=== PATIENT | male | born 1945 | race Caucasian/White ===

== ENCOUNTER 2019-07-11 06:15 | Observation (INO) | payer MEDICARE ==
[2019-07-09 08:45] LABS: BASOPHILS % (AUTO) 0.6 % (0.0-5.0); EOSINOPHILS % (AUTO) 4.8 % (0.0-8.0); HEMATOCRIT 39.9 % (42-54); LYMPHOCYTES % (AUTO) 12.6 % (21.0-51.0); MEAN CORPUSCULAR HEMOGLOBIN 22.3 pg (27.0-33.0); MEAN CORPUSCULAR HGB CONC 29.6 g/dL (32.0-36.0); MEAN CORPUSCULAR VOLUME 75.4 fL (79-99); MONOCYTES % (AUTO) 15.6 % (3.0-13.0); NEUTROPHILS % (AUTO) 65.8 % (40.0-77.0); PLATELET COUNT (AUTO) 318 K/uL (130-400); RED BLOOD CELL COUNT(AUTO) 5.29 MIL/uL (4.50-6.20); WHITE BLOOD COUNT (AUTO) 7.7 K/uL (4.8-10.8)
[2019-07-09 08:52] VITALS: BP 152/76
[2019-07-09 08:53] LABS: CREATININE 1.2 mg/dL (0.5-1.5)
[2019-07-09 09:05] LABS: INR 1.04 (0.85-1.15); PARTIAL THROMBOPLASTIN TIME 30.8 SEC (26.3-35.5); PROTHROMBIN TIME 10.9 SEC (9.6-11.6)
--- NOTE | 2019-07-09 09:42 | NUR ---
VOICEMAIL LEFT WITH MELODIE TO INFORM HIM OF PROCEDURE. Addendum: 07/09/19 at 0970 by AMERICA SALTER RN RN [facility]
[~2019-07-11] VITALS: Ht 189.2 cm; Wt 124.4 kg
[2019-07-11] VITALS (10 sets, daily range): BP systolic 117–150; BP diastolic 63–78
[~2019-07-11 06:15] MED LIST: ALLO300T2 PO; AMLO10TA7 PO; CEFAZOLIN SODIUM 1 GM VIAL IVP SCH; EPLE25TA10 PO; FISH1CAP27 PO; INSU100I24 SQ; LEVO200T10 PO; LOSA100T58 PO; OMEP20CA12 PO; RIVA20TA PO; SODIUM CHLORIDE 0.9% 1000ML 1,000 ML IV SCH; SOTA80TA PO
--- NOTE | 2019-07-11 06:33 | NUR ---
PATIENT ARRIVED PATIENT ARRIVED TO DAY PATIENT ACCOMPANIED BY SPOUSE, MICHELLE. PATIENT AAOX3, RESPIRATIONS UNLABORED, VITAL SIGNS STABLE. PROCEDURE VERIFIED WITH PATIENT AND HOSPITAL ROUTINE EXPLAINED. PATIENT VERBALIZED UNDERSTANDING. PATIENT HAS LARGE ABRASION (DRY SCAB) TO THE BACK OF HIS LEFT FOREARM. PATIENT STATES THAT HE FELL DOWN A WEEK AGO AND THAT DR BOURNE IS AWARE OF THE ABRASION/FALL.
[2019-07-11] MEDS ORDERED: BUPIVACAINE/PF 0.25% 30ML VIAL IJ ONE (09:54)
[2019-07-11] MEDS ORDERED: CEFAZOLIN SODIUM 1 GM VIAL ONE (09:55)
[2019-07-11] MEDS ORDERED: LIDOCAINE HCL 2% 20ML ONE (09:55)
[2019-07-11] MEDS ORDERED: MIDAZOLAM HCL 1 MG/ML 2ML VIAL ONE ×2 (09:55→10:54)
[2019-07-11] MEDS ORDERED: IODIXANOL 320 MG/ML 100 ML VIAL ONE (09:55)
[2019-07-11] MEDS ORDERED: MEPERIDINE-PF 25 MG/ML SYG ONE ×2 (09:56→10:54)
[2019-07-11] MEDS ORDERED: LIDOCAINE HCL 1% MDV 50ML VIAL ONE (09:57)
--- NOTE | 2019-07-11 10:14 | NUR ---
PATIENT TRANSFERRED TO MEDICAL PRACTICE ASSISTANT VIA BED BY CANDY FELDER. DR BOURNE SPOKE WITH PATIENT REGARDING PROCEDURE, PATIENT VERBALIZED UNDERSTANDING. PATIENT'S INSTRUCTED TO WAIT IN ROOM IN ORDER TO SPEAK WITH DR BOURNE AFTER PROCEDURE IS COMPLETE.
--- NOTE | 2019-07-11 12:00 | NUR ---
POST PROCEDURE RECEIVED PT FROM ASLEEP BUT AROUSEABLE, A&OX3, CALM COOPERATIVE AND DOES NOT APPEAR TO BE IN ANY DISTRESS NOR ANY NEURO DEFICITS PRESENT. PT DENIES PAIN, SOB, NAUSEA. LEFT SHOULDER DRESSING DRY, INTACT AND SECURED WITH ARM SLING, PT ON BEDREST UNTIL 1529. CALL LIGHT WITHIN REACH, FAMILY AT BEDSIDE.
[2019-07-11] MEDS ORDERED: TRAMADOL HCL 50 MG TABLET PO PRN (15:30)
--- NOTE | 2019-07-11 16:00 | NUR ---
BEDREST COMPLETE PT AMBULATING TO BATHROOM TO HALLWAY AND BACK TO BED, GAIT STEADY AND STRONG WITH STAND BY ASSIST. CALL LIGHT WITHIN REACH, FAMILY AT BEDSIDE.
--- NOTE | 2019-07-11 16:03 | NUR ---
0816 patient signed FRANCIS Letter, I faxed letter to [phone] and placed in chart under consent tab
[2019-07-11] MEDS: SOTALOL HCL 80 MG TABLET PO SCH (21:23)
[2019-07-12 03:00] VITALS: BP 144/78
[2019-07-12 04:44] LABS: HEMATOCRIT 37.3 % (42-54); MEAN CORPUSCULAR HEMOGLOBIN 22.3 pg (27.0-33.0); MEAN CORPUSCULAR HGB CONC 30.3 g/dL (32.0-36.0); MEAN CORPUSCULAR VOLUME 73.7 fL (79-99); PLATELET COUNT (AUTO) 296 K/uL (130-400); RED BLOOD CELL COUNT(AUTO) 5.06 MIL/uL (4.50-6.20); RED CELL DISTRIBUTION WIDTH 18.9 % (11.0-15.5); WHITE BLOOD COUNT (AUTO) 8.6 K/uL (4.8-10.8)
[2019-07-12 05:03] LABS: CREATININE 1.1 mg/dL (0.5-1.5); POTASSIUM 4.1 mmol/L (3.5-5.1)
[2019-07-12] MEDS ORDERED: LEVOTHYROXINE 100 MCG TABLET PO SCH (06:30)
[2019-07-12 07:00] VITALS: BP 121/64
[2019-07-12] MEDS ORDERED: INSULIN DEGLUDEC 30 UNIT SQ SCH (09:00)
[2019-07-12] MEDS ORDERED: LOSARTAN 100 MG TABLET PO SCH (09:00)
[2019-07-12] MEDS ORDERED: ALLOPURINOL 300 MG TABLET PO SCH (09:00)
[2019-07-12] MEDS ORDERED: PANTOPRAZOLE SODIUM 40 MG TABLET.DR PO SCH (09:00)
[2019-07-12] MEDS ORDERED: ***HM***(Eplerenone 25 MG) PO SCH (09:00)
[2019-07-12] MEDS ORDERED: AMLODIPINE BESYLATE 5 MG TAB PO SCH (09:00)
[2019-07-12] MEDS: SOTALOL HCL 80 MG TABLET PO SCH (09:00)
== END 2019-07-12 11:48 | disposition home or self-care (01) ==
LOC: DAH 06:15 → DAHIP 06:16 → 2AH 12:07
PROVIDERS: ADMIT Internal Medicine; ATTEND Internal Medicine
DX: I49.5 Sick sinus syndrome (principal); I48.0 Paroxysmal atrial fibrillation; I25.10 Atherosclerotic heart disease of native coronary artery without angina pectoris; R00.1 Bradycardia, unspecified; I45.89 Other specified conduction disorders; E03.9 Hypothyroidism, unspecified; Z85.819 Personal history of malignant neoplasm of unspecified site of lip, oral cavity, and pharynx; I10 Essential (primary) hypertension; I44.0 Atrioventricular block, first degree; Z87.891 Personal history of nicotine dependence; Z95.0 Presence of cardiac pacemaker; Z79.01 Long term (current) use of anticoagulants; Z79.899 Other long term (current) drug therapy
CPT/HCPCS: 33208; 36415 ×2; 71045; 80048 ×2; 82948 ×2; 85025; 85027; 85610; 85730; A4215; A4216; A4221; A4222; A4223 ×3; A4606; A4663; C1785; C1898 ×2; G0378 ×24; J0690; J2175 ×2; J2250 ×2; J3490 ×2; 99156; 99157; Q9967

== ENCOUNTER 2019-09-12 05:50 | Day surgery (SDC) | payer MEDICARE ==
[~2019-09-12] VITALS: Ht 193 cm; Wt 121.5 kg
[2019-09-12] VITALS (12 sets, daily range): BP systolic 115–158; BP diastolic 66–94
[~2019-09-12 05:50] MED LIST changes: -CEFAZOLIN SODIUM 1 GM VIAL IVP SCH; -SODIUM CHLORIDE 0.9% 1000ML 1,000 ML IV SCH
[2019-09-12 06:58] LABS: BASOPHILS % (AUTO) 0.7 % (0.0-5.0); EOSINOPHILS % (AUTO) 6.2 % (0.0-8.0); HEMATOCRIT 40.5 % (42-54); LYMPHOCYTES % (AUTO) 13.1 % (21.0-51.0); MEAN CORPUSCULAR HEMOGLOBIN 22.8 pg (27.0-33.0); MEAN CORPUSCULAR HGB CONC 30.1 g/dL (32.0-36.0); MEAN CORPUSCULAR VOLUME 75.8 fL (79-99); MONOCYTES % (AUTO) 15.3 % (3.0-13.0); PLATELET COUNT (AUTO) 310 K/uL (130-400); RED BLOOD CELL COUNT(AUTO) 5.34 MIL/uL (4.50-6.20); RED CELL DISTRIBUTION WIDTH 19.7 % (11.0-15.5); WHITE BLOOD COUNT (AUTO) 8.6 K/uL (4.8-10.8)
[2019-09-12] MEDS ORDERED: SODIUM CHLORIDE 0.9% 1000ML 1,000 ML IV ONE ×2 (07:13→07:19)
[2019-09-12 07:18] LABS: CREATININE 1.3 mg/dL (0.5-1.5); POTASSIUM 4.5 mmol/L (3.5-5.1)
[2019-09-12] MEDS ORDERED: PILOC5 PO (07:46)
--- NOTE | 2019-09-12 08:25 | NUR ---
MD DR BOURNE ARRIVED AND EVAL PATIENT. WILL PROCEED WITH PROCEDURE.
[2019-09-12] MEDS ORDERED: PROPOFOL 10 MG/ML 20ML VIAL IV ONE (08:28)
--- NOTE | 2019-09-12 08:45 | NUR ---
CARDIOVERSION CARDIOVERSION WITH ANESTHESIA PERFORMED AT BEDSIDE BY DR BOURNE TIME OUT DONE AT 0830 START TIME 0832 SHOCK X 1 DELIVERED AT 0832 EXTERNAL SHOCK 150 JOULES FINISH PROCEDURE TIME 0833 RECOVERY START TIME AT 0834 PATIENT TOLERATED WELL WITH NO DISCOMFORTS. PATIENT CONVERTED, V/S STABLE, BOTH DR BOURNE AND DEE PERLA POWER DISTRIBUTION ENGINEER. DR BOURNE SPOKE TO SPOUSE OVER THE PHONE. PATIENT WILL BE DISCHARGED WHEN FULLY AWAKE AND STABLE
--- NOTE | 2019-09-12 09:30 | NUR ---
DISCHARGE PT GIVEN THE DISCHARGE HANDOUTS AND INSTRUCTIONS. PT ASSISTED WITH CLOTHING. PT TAKEN OUT VIA WHEELCHAIR BY AMOS FLORES. PT IN NO DISTRESS
== END 2019-09-12 09:35 | disposition home or self-care (01) ==
LOC: DAH 05:50
PROVIDERS: ATTEND Internal Medicine Cardiovascular Disease
DX: I48.19 Other persistent atrial fibrillation (principal); I10 Essential (primary) hypertension; E03.9 Hypothyroidism, unspecified; Z79.4 Long term (current) use of insulin; Z79.899 Other long term (current) drug therapy; Z79.01 Long term (current) use of anticoagulants; Z87.891 Personal history of nicotine dependence; Z72.89 Other problems related to lifestyle; Z95.0 Presence of cardiac pacemaker; Z82.49 Family history of ischemic heart disease and other diseases of the circulatory system
CPT/HCPCS: 36415; 80048; 82948; 85025; 92960; 93005 ×2; A4215; A4216; A4221; A4222; A4223 ×3; A4606; A4663; J2704; J7030 ×2; 99156

== ENCOUNTER 2019-10-23 05:50 | Day surgery (SDC) | payer MEDICARE ==
[~2019-10-23] VITALS: Ht 193 cm; Wt 120.7 kg
[2019-10-23] VITALS (10 sets, daily range): BP systolic 119–153; BP diastolic 74–91
[~2019-10-23 05:50] MED LIST changes: +AMLO-258 PO; -AMLO10TA7 PO; +PILOC5 PO; +SOTA120T PO; -SOTA80TA PO
[2019-10-23 06:22] LABS: BASOPHILS % (AUTO) 0.8 % (0.0-5.0); EOSINOPHILS % (AUTO) 5.3 % (0.0-8.0); HEMATOCRIT 42.4 % (42-54); MEAN CORPUSCULAR HEMOGLOBIN 23.1 pg (27.0-33.0); MEAN CORPUSCULAR HGB CONC 30.4 g/dL (32.0-36.0); MEAN CORPUSCULAR VOLUME 75.8 fL (79-99); MONOCYTES % (AUTO) 14.1 % (3.0-13.0); NEUTROPHILS % (AUTO) 66.4 % (40.0-77.0); PLATELET COUNT (AUTO) 282 K/uL (130-400); RED BLOOD CELL COUNT(AUTO) 5.59 MIL/uL (4.50-6.20); RED CELL DISTRIBUTION WIDTH 19.8 % (11.0-15.5); WHITE BLOOD COUNT (AUTO) 9.3 K/uL (4.8-10.8)
[2019-10-23 06:37] LABS: CREATININE 1.4 mg/dL (0.5-1.5); POTASSIUM 4.6 mmol/L (3.5-5.1)
[2019-10-23] MEDS ORDERED: SODIUM CHLORIDE 0.9% 1000ML 1,000 ML IV ONE (06:42)
--- NOTE | 2019-10-23 06:56 | NUR ---
SKIN DRY SCALY SKIN TROUGH OUT BODY, MULTIPLE BRUISING NOTED TO ALL EXTREMITIES PT ON XARELTO DAILY Addendum: 10/23/19 at 0657 by RADHA PIPER RN Amended: Links added.
[2019-10-23] MEDS ORDERED: SOTA80TA PO (07:00)
[2019-10-23] MEDS ORDERED: LIDOCAINE PF 2% 5ML ABBOJECT ONE (08:23)
[2019-10-23] MEDS ORDERED: PROPOFOL 10 MG/ML 20ML VIAL IV ONE (08:24)
--- NOTE | 2019-10-23 09:28 | NUR ---
CARDIOVERSION CARDIOVERSION WITH ANESTHESIA DR. GUZMAN PERFORMED AT BEDSIDE BY DR. BOURNE PATIENT ROOM 8 TIME OUT DONE 0840 SHOCK TIME X 1 DELIVERED AT 0847 150 JOULES , PT BRETT WELL. NO ADVERSE REACTIONS NOTED RECOVERY START TIME 0853 PATIENT TOLERATED WELL NO DISCOMFORTS , PT CONVERTED, VS STABLE , PT WILL BE DISCHARGE HOME ONCE FULLY AWAKE
--- NOTE | 2019-10-23 09:34 | NUR ---
dc dc instructions given to pt spouse over the phone, she verbalized understanding.
--- NOTE | 2019-10-23 10:00 | NUR ---
DC PT DC HOME VIA WC, NO DISTRESS NOTED. PT ACCOMPANIED BY SPOUSE
== END 2019-10-23 10:00 | disposition home or self-care (01) ==
LOC: DAH 05:50
PROVIDERS: ATTEND Internal Medicine Cardiovascular Disease
DX: I48.19 Other persistent atrial fibrillation (principal); J44.9 Chronic obstructive pulmonary disease, unspecified; E03.9 Hypothyroidism, unspecified; Z85.818 Personal history of malignant neoplasm of other sites of lip, oral cavity, and pharynx; Z95.0 Presence of cardiac pacemaker
CPT/HCPCS: 36415; 80048; 85025; 92960; 93005; A4215; A4216; A4221; A4223 ×3; A4606; A4657; A4663; J2001; J2704; J7030; 99156; 99157

== ENCOUNTER 2020-05-22 06:22 | Day surgery (SDC) | payer MEDICARE ==
[2020-05-19 13:49] LABS: BASOPHILS % (AUTO) 0.7 % (0.0-5.0); EOSINOPHILS % (AUTO) 2.8 % (0.0-8.0); HEMATOCRIT 43.1 % (42-54); LYMPHOCYTES % (AUTO) 9.6 % (21.0-51.0); MEAN CORPUSCULAR HEMOGLOBIN 24.2 pg (27.0-33.0); MEAN CORPUSCULAR HGB CONC 31.3 g/dL (32.0-36.0); MEAN CORPUSCULAR VOLUME 77.4 fL (79-99); MONOCYTES % (AUTO) 12.3 % (3.0-13.0); PLATELET COUNT (AUTO) 243 K/uL (130-400); RED BLOOD CELL COUNT(AUTO) 5.57 MIL/uL (4.50-6.20); RED CELL DISTRIBUTION WIDTH 21.3 % (11.0-15.5); WHITE BLOOD COUNT (AUTO) 8.9 K/uL (4.8-10.8)
[2020-05-19 13:57] LABS: CREATININE 1.2 mg/dL (0.5-1.5)
[2020-05-19 14:00] LABS: INR 1.25 (0.85-1.15); PARTIAL THROMBOPLASTIN TIME 38.7 SEC (26.3-35.5); PROTHROMBIN TIME 13.4 SEC (9.6-11.6)
[2020-05-21 10:01] VITALS: BP 148/84
[~2020-05-22] VITALS: Ht 193 cm; Wt 119.0 kg
[2020-05-22] VITALS (7 sets, daily range): BP systolic 119–157; BP diastolic 68–91
[~2020-05-22 06:22] MED LIST changes: -AMLO-258 PO; -SOTA120T PO
[2020-05-22] MEDS ORDERED: SODIUM CHLORIDE 0.9% 1000ML 1,000 ML IV SCH (08:00)
[2020-05-22] MEDS ORDERED: DRON400T2 PO (08:20)
[2020-05-22] MEDS ORDERED: PROPOFOL 10 MG/ML 20ML VIAL IV ONE (11:06)
== END 2020-05-22 12:15 | disposition home or self-care (01) ==
LOC: DAH 06:22
PROVIDERS: ATTEND Internal Medicine Cardiovascular Disease
DX: I48.0 Paroxysmal atrial fibrillation (principal); Z20.828 Contact with and (suspected) exposure to other viral communicable diseases; J44.9 Chronic obstructive pulmonary disease, unspecified; I10 Essential (primary) hypertension; E11.9 Type 2 diabetes mellitus without complications; E03.9 Hypothyroidism, unspecified; I45.89 Other specified conduction disorders; Z98.890 Other specified postprocedural states; Z95.0 Presence of cardiac pacemaker; Z85.810 Personal history of malignant neoplasm of tongue; Z79.01 Long term (current) use of anticoagulants; Z79.890 Hormone replacement therapy; Z79.899 Other long term (current) drug therapy
CPT/HCPCS: 36415; 80048; 82948; 85025; 85610; 85730; 92960; 93005 ×2; A4215; A4216; A4221; A4222; A4223 ×3; A4606; A4615; A4663; C9803; J2704; U0003